=== PATIENT | female | born 1975 | race Caucasian/White ===

== ENCOUNTER 2023-08-27 07:31 | Emergency (ER) | payer OTHER, SELFPAY ==
[2023-08-27 07:37] VITALS: BP 127/92; PULSE 87; RESP 20; TEMP 36.1; O2SAT 98; BMI 21.9
[2023-08-27] MEDS: 0.9 % SODIUM CHLORIDE 1000 ml 1,000 ML IV (08:48)
[2023-08-27] MEDS: ONDANSETRON 2 MG/ML inj 4 MG IVP (08:50)
[2023-08-27] MEDS: KETOROLAC 30 MG/ML inj IVP (08:52)
[2023-08-27] MEDS: diphenhydrAMINE 50 MG/ML inj IVP (08:55)
[2023-08-27 09:55] VITALS: BP 125/78; PULSE 64; RESP 18; TEMP 36.3; O2SAT 99
--- NOTE | 2023-08-27 09:57 | ED_ITS ---
HPI - Headache General Chief Complaint: Headache/Migraine Stated Complaint: migraine for 4+ days Time Seen by Provider: 08/27/23 08:22 History of Present Illness HPI Narrative: Patient is a 48-year-old woman with history of migraine headaches who is having her refractory migraine today. She has had symptoms for last 6 hours. Imitrex is not been helping. The headache is diffuse and moderate. She has mild photophobia but no aura. She has had no nausea no vomiting no fevers no ch ills no night sweats she has otherwise been in good health. She has had no neck pain and no recent injuries. This is her 1st trip in according her to the ER for a severe headache. Related Data Home Medications Medication Instructions Recorded Confirmed fluoxetine 20 mg capsule 20 mg PO QAM 08/27/23 08/27/23 sumatriptan succinate 50 mg tablet 50 mg PO Q2H PRN migraine 08/27/23 08/27/23 Allergies Allergy/AdvReac Type Severity Reaction Status Date / Time No Known Drug Allergies Allergy Verified 08/27/23 07:36 Review of Systems Status of ROS: Reports: 10 or more systems reviewed and unremarkable except as noted in History and below [facility] Social History Smoking Status: Never smoker Do you use any of these nicotine containing products: None Second hand tobacco smoke exposure: No How often do you have a drink containing alcohol: 2-4 times a month How many standard drinks containing alcohol do you have on a typical day: 1 or 2 How often do you have six or more drinks on one occasion: Never AUDIT-C Alcohol total score: 2 Non-prescribed substance use: denies use service: No Exam Narrative: Exam Narrative: EXAM GENERAL: Patient appears comfortable and well. EYES: No scleral icterus. ENT: Tympanic membranes and oropharynx normal. THYROID: no thyroid nodules or thyromegaly. LYMPH: No supraclavicular or cervical lymphadenopathy. SKIN: Visible skin seen during exam normal or with benign process only. EXT: No dependent lower extremity pedal edema. HEART: Regular rate and rhythm with no murmurs, rubs, or gallops. LUNGS: Clear to auscultation bilaterally with no crackles or wheezes. ABD: Soft, non tender, non distended. PSYCH: Good eye contact, speech is not pressured. Neurologic cranial nerves 2-12 grossly intact no focal defects. Const: Vital Signs, click to edit/add: Vital Signs - 24 hr 08/27/23 07:37 08/27/23 09:55 Temperature 96.9 F L 97.3 F L Pulse Rate [Pulse Oximeter] 87 64 Respiratory Rate 20 18 Blood Pressure [Ri ght Upper Arm] 127/92 H 125/78 Pulse Oximetry 98 99 Oxygen Delivery Me thod Room Air Room Air Course Course ED Course: Patient seen examined. Vital Signs Vital signs: Initial Vital Signs Temperature 96.9 F L 08/27/23 07:37 Temperature Source Temporal Artery Scan 08/27/23 07:37 Pulse Rate 87 08/27/23 07:37 Pulse Rhythm Regular 08/27/23 07:37 Respiratory Rate 20 08/27/23 07:37 Blood Pressure 127/92 H 08/27/23 07:37 Blood Pressure Mean 103 08/27/23 07:37 Blood Pressure Position Supine 08/27/23 07:37 Pulse Oximetry 98 08/27/23 07:37 Oxygen Delivery Method Room Air 08/27/23 07:37 Vital Signs Temperature 96.9 F L 08/27/23 07:37 Pulse Rate 87 08/27/23 07:37 Respiratory Rate 20 08/27/23 07:37 Blood Pressure 127/92 H 08/27/23 07:37 Pulse Oximetry 98 08/27/23 07:37 Oxygen Delivery Method Room Air 08/27/23 07:37 Temperature 97.3 F L 08/27/23 09:55 Pulse Rate 64 08/27/23 09:55 Respiratory Rate 18 08/27/23 09:55 Blood Pressure 125/78 08/27/23 09:55 Pulse Oximetry 99 08/27/23 09:55 Oxygen Delivery Method Room Air 08/27/23 09:55 MDM - Headache MDM Narrative Medical decision making narrative: Patient is a 48-year-old woman with history of migraine headaches who is having refractory migraine today. She has no neurologic symptoms no signs of meningitis. She is treated with normal saline Zofran Toradol and Benadryl with relief of her symptoms. She is feeling well and will follow-up with her primary physician to discuss management of her headaches long-term. Differential Diagnosis Differential diagnosis: Likely migraine, tension headache, subarachnoid hemorrhage, headache, meningitis and sinusitis Discharge Plan Discharge Clinical Impression: Headache Patient Disposition: Home, Self-Care Condition: Stable Instructions: Acute Headache (ED) Additional Instructions: Continue current management discuss prophylaxis with your doctor Activity Level: No Restrictions Discharge Diet: Regular Prescriptions: No Action sumatriptan succinate 50 mg tablet 50 mg PO Q2H PRN (Reason: migraine) fluoxetine 20 mg capsule 20 mg PO QAM Follow Up/Referrals: Dora Bowers MD [Primary Care Provider] - Stand Alone Forms: [employer] Info Instructions
== END 2023-08-27 10:15 | disposition home or self-care (01) ==
PROVIDERS: Emergency Provider Internal Medicine; PCP Family Medicine
DX: R51.9 Headache, unspecified (principal)
CPT/HCPCS: 96361; 96374; 96375; 99283; 99284; J1200; J1885; J2405; J7030

== ENCOUNTER 2024-12-02 17:02 | Outpatient (CLI) | payer OTHER, SELFPAY | END 2024-12-02 17:03 | disposition home or self-care (01) | LOC: NFLDREF 12-03 20:05 | PROVIDERS: PCP Family Medicine; Referring Provider Family Medicine; Visit Provider Nurse Practitioner Family | DX: N30.00 Acute cystitis without hematuria (principal); N30.01 Acute cystitis with hematuria | CPT/HCPCS: 87086 ==